=== PATIENT | male | born 1950 | race Caucasian/White ===

== ENCOUNTER → 2023-10-12 13:12 | Outpatient (REF) | payer MEDICARE, BC, SELFPAY | LOC: MRI 3T 13:12 | PROVIDERS: ATTENDING PHYSICIAN Psychiatry & Neurology Neurology; FAMILY PHYSICIAN Family Medicine | DX: R25.1 Tremor, unspecified (principal) | CPT/HCPCS: 70553; A9575 ==

== ENCOUNTER 2024-02-06 08:55 | Outpatient (RCR) | payer MEDICARE, BC, SELFPAY | END 2024-02-06 23:59 | disposition home or self-care (01) | LOC: ROT 08:55 | PROVIDERS: ATTENDING PHYSICIAN Psychiatry & Neurology Neurology; FAMILY PHYSICIAN Family Medicine | DX: R25.1 Tremor, unspecified (principal); Z73.6 Limitation of activities due to disability; G20.A1 Parkinson's disease without dyskinesia, without mention of fluctuations | CPT/HCPCS: 97110; 97112; 97116; 97163; 97166; 97530; 97535 ==

== ENCOUNTER 2024-02-09 10:05 | Outpatient (RCR) | payer MEDICARE, BC, SELFPAY | END 2024-02-09 11:17 | disposition home or self-care (01) | LOC: ROT 10:05 | PROVIDERS: ATTENDING PHYSICIAN Psychiatry & Neurology Neurology; FAMILY PHYSICIAN Family Medicine | DX: R25.1 Tremor, unspecified (principal); Z73.6 Limitation of activities due to disability; G20.A1 Parkinson's disease without dyskinesia, without mention of fluctuations | CPT/HCPCS: 97110; 97112; 97530 ==

== ENCOUNTER 2024-04-01 06:58 | Outpatient (RCR) | payer MEDICARE, BC, SELFPAY | END 2024-04-01 23:59 | disposition home or self-care (01) | LOC: RST 06:58 | PROVIDERS: ATTENDING PHYSICIAN Psychiatry & Neurology Neurology; FAMILY PHYSICIAN Family Medicine | DX: R25.1 Tremor, unspecified (principal); R47.1 Dysarthria and anarthria; R49.0 Dysphonia | CPT/HCPCS: 92524 ==

== ENCOUNTER 2024-05-02 06:21 | Outpatient (RCR) | payer MEDICARE, BC, SELFPAY | END 2024-05-02 10:45 | disposition home or self-care (01) | LOC: RST 06:21 | PROVIDERS: ATTENDING PHYSICIAN Psychiatry & Neurology Neurology; FAMILY PHYSICIAN Family Medicine | DX: G20.C Parkinsonism, unspecified (principal); R25.1 Tremor, unspecified (principal); R47.1 Dysarthria and anarthria; R49.0 Dysphonia | CPT/HCPCS: 92507 ==

== ENCOUNTER → 2024-10-10 11:22 | Outpatient (REF) | payer MEDICARE, BC, SELFPAY | LOC: HWRAD 11:22 | PROVIDERS: ATTENDING PHYSICIAN Family Medicine | DX: R05.1 Acute cough (principal) | CPT/HCPCS: 71046 ==